=== PATIENT | female | born 1940 | race Caucasian/White ===

== ENCOUNTER → 2017-11-20 | Outpatient (CLI) | payer MEDICARE ==
[2017-11-20 14:24] LABS: ERYTHROCYTE SEDIMENTATION RATE 52 mm/hr (0-30)
[2017-11-20 14:39] LABS: IMMUNOGLOBULIN G 1570 MG/DL (681-1648); IMMUNOGLOBULIN M 85.7 MG/DL (40-230); RHEUMATOID FACTOR QUANT < 10.0 IU/ML (<15.0)
[2017-11-23 00:09] LABS: ANCA-ATYPICAL <1:20 titer (Neg:<1:20); ANTI DOUBLE STRAND-DNA AB 2 IU/mL (0-9); ANTINUCLEAR ANTIBODIES DIRECT Negative (Negative); CYTOPLASMIC NEUTROP AB ANCA-C <1:20 titer (Neg:<1:20); PERINUCLEAR AB ANCA-P <1:20 titer (Neg:<1:20); RNP ANTIBODIES <0.2 AI (0.0-0.9); SJOGREN'S ANTI SS-A <0.2 AI (0.0-0.9); SJOGREN'S ANTI SS-B <0.2 AI (0.0-0.9); SMITH ANTIBODIES <0.2 AI (0.0-0.9)
== END ==
LOC: M SMT 09:51
DX: J47.9 Bronchiectasis, uncomplicated (principal)
CPT/HCPCS: 86255